=== PATIENT | male | born 1985 | race African-American/Black ===

== ENCOUNTER 2019-09-09 06:29 | Emergency (ER) | payer BC ==
[~2019-09-09] VITALS: Ht 170.2 cm; Wt 87.0 kg
[2019-09-09] MEDS ORDERED: BACITRACIN ZINC OINT UDPKT TOP ONE (07:15)
[2019-09-09] MEDS ORDERED: TETANUS, DIPHTHERIA, PERTUSSIS VAC/PF 0.5ML (>7YR OLD) IM ONE (07:15)
[2019-09-09 07:54] VITALS: BP 139/77
== END 2019-09-09 07:55 | disposition home or self-care (01) ==
LOC: ER 06:29
DX: S61.216A Laceration without foreign body of right little finger without damage to nail, initial encounter (principal); L03.011 Cellulitis of right finger; W26.0XXA Contact with knife, initial encounter; Y93.G1 Activity, food preparation and clean up; Y92.9 Unspecified place or not applicable
CPT/HCPCS: 90471; 90715; 99283

== ENCOUNTER 2019-09-11 20:49 | Emergency (ER) | payer BC ==
[~2019-09-11] VITALS: Ht 170.2 cm; Wt 87.0 kg
[2019-09-11 21:52] VITALS: BP 127/84
== END 2019-09-11 22:44 | disposition home or self-care (01) ==
LOC: ER 20:49
DX: S61.216D Laceration without foreign body of right little finger without damage to nail, subsequent encounter (principal); W26.0XXD Contact with knife, subsequent encounter
CPT/HCPCS: 99283

== ENCOUNTER 2021-04-30 04:55 | Emergency (ER) | payer BC, OTHER ==
[~2021-04-30] VITALS: Ht 170.2 cm; Wt 97.3 kg
[2021-04-30 05:11] VITALS: BP 152/99
== END 2021-04-30 06:14 | disposition left against medical advice (07) ==
LOC: ER 04:55
DX: Z53.21 Procedure and treatment not carried out due to patient leaving prior to being seen by health care provider (principal)